=== PATIENT | male | born 1970 | race Caucasian/White ===

== ENCOUNTER → 2020-06-28 08:32 | Outpatient (BNVA) | payer OTHER, SELFPAY | PROVIDERS: PCP Internal Medicine; Referring Provider Internal Medicine; Visit Provider Internal Medicine Gastroenterology | DX: B37.0 Candidal stomatitis (principal); K21.9 Gastro-esophageal reflux disease without esophagitis; C77.5 Secondary and unspecified malignant neoplasm of intrapelvic lymph nodes; Z87.19 Personal history of other diseases of the digestive system; Z92.21 Personal history of antineoplastic chemotherapy ==